=== PATIENT | male | born 1960 ===

== ENCOUNTER 2019-03-17 17:47 | Emergency (ER) | payer BC ==
[2019-03-17 18:18] VITALS: BP 137/95
--- NOTE | 2019-03-17 18:43 | UC ---
Skin Complaint HPI - HPI Summary HPI Summary: 58 year old male, denies PMH, presents after beesting yesterday. Noted increased redness, warmth, firmness today. Denies SOB, palpitations, throat symptoms. No prior reactions. - History of Current Complaint Chief Complaint: UCSkin Time Seen by Provider: 03/17/19 18:16 Stated Complaint: BEE STING REDNESS LEFT ARM Hx Obtained From: Patient Onset/Duration: Sudden Onset, Lasting Days Skin Exposure Onset/Duration: Days Ago Timing: Constant Onset Severity: Moderate Current Severity: Moderate Pain Intensity: 0 Pain Scale Used: 0-10 Numeric Location: Diffuse Aggravating Factor(s): Nothing Alleviating Factor(s): Nothing Associated Signs & Symptoms: Positive: Negative - Allergy/Home Medications Allergies/Adverse Reactions: Allergies Allergy/AdvReac Type Severity Reaction Status Date / Time No Known Allergies Allergy Verified 03/17/19 18:18 PMH/Surg Hx/FS Hx/Imm Hx Previously Healthy: Yes - Surgical History Surgical History: Yes Surgery Procedure, Year, and Place: right ankle fx. right ear/re-attachment d/ t [facility] - Family History Known Family History: Positive: Non-Contributory - Social History Alcohol Use: Weekly Alcohol Amount: 2-3 drinks a week Substance Use Type: None Smoking Status (MU): Current Some Day Smoker Type: Cigars Review of Systems All Other Systems Reviewed And Are Negative: Yes Constitutional: Negative: Fever, Chills, Fatigue Skin: Positive: Rash Musculoskeletal: Positive: Edema, Myalgia Is Patient Immunocompromised?: No Physical Exam Triage Information Reviewed: Yes Appearance: Well-Appearing, No Pain Distress, Well-Nourished Vital Signs: Initial Vital Signs Temp 98.1 F 03/17/19 18:15 Pulse 72 03/17/19 18:15 Resp 18 03/17/19 18:15 BP 137/95 03/17/19 18:15 Pulse Ox 100 03/17/19 18:15 Vital Signs Reviewed: Yes Eyes: Positive: Conjunctiva Clear ENT: Positive: Pharynx normal, Uvula midline. Negative: Tonsillar swelling, Tonsillar exudate Respiratory: Positive: Chest non-tender, Lungs clear, Normal breath sounds, No respiratory distress, No accessory muscle use Cardiovascular: Positive: RRR, No Murmur Musculoskeletal: Positive: Strength Intact, ROM Intact, Edema @ Neurological: Positive: Alert, Muscle Tone Normal Skin: Positive: Rashes - erythema in medial upper arm, approximately 5xcm x 4xm , indurated area near axillary, no LAD. full ROM of R shoulder, R elbow. Course/Dx - Course Course Of Treatment: Allergic reaction to bee sting: - Medrol dose pack- take for 3 days, if symptoms completed resolved may stop however continue if still symptomatic - GO to ER with increased redness, pain, fever/ chills, shortness of breath, difficulty swallowing - Tylenol as needed for pain - Diagnoses Provider Diagnosis: Bee sting reaction Discharge ED - Sign-Out/Discharge Documenting (check all that apply): Patient Departure All imaging exams completed and their final reports reviewed: No Studies - Discharge Plan Condition: Good Disposition: HOME Prescriptions: methylPREDNISolone [Medrol Dosepak 4 MG*] 0 mg PO .SEE ELAYNE INSTRUCTION #1 packet Patient Education Materials: General Allergic Reaction (ED) Referrals: Andrzej Madrid [Primary Care Provider] - Additional Instructions: - Medrol dose pack- take for 3 days, if symptoms completed resolved may stop however continue if still symptomatic - GO to ER with increased redness, pain, fever/ chills, shortness of breath, difficulty swallowing - Tylenol as needed for pain - Billing Disposition and Condition Condition: GOOD Disposition: Home
== END 2019-03-17 18:34 | disposition home or self-care (01) ==
LOC: UCCORT 17:47
DX: T63.441A Toxic effect of venom of bees, accidental (unintentional), initial encounter (principal); Y92.9 Unspecified place or not applicable; F17.290 Nicotine dependence, other tobacco product, uncomplicated
CPT/HCPCS: 99202; G0463